=== PATIENT | female | born 1990 | race Caucasian/White ===

== ENCOUNTER → 2016-06-20 | Outpatient (CLI) | payer OTHER ==
--- NOTE | 2016-06-20 15:07 | REP ---
Pelvic sonography: History: Pelvic cramping, IUD placement. Findings: Transabdominal and endovaginal scanning are performed. Uterine dimensions are normal at 7.9 x 3.9 x 4.3 cm. There is a linear echogenic structure in the endometrium consistent with a normally positioned IUD. No focal uterine mass is seen. No free fluid is noted. The right ovary measures 3.6 x 2.4 x 2.9 cm. Left ovary measures 2.0 x 1.6 x 3.4 cm. Resistive indices are normal by Doppler bilaterally measured at 0.39 and 0.9 on the right and left respectively. Impression: IUD in what appears to be normal position. Unremarkable pelvic sonography. Signed by Colby Thomas MD 06/20/2016 03:11 P
== END ==
LOC: M RAD 12:37
PROVIDERS: ATTEND Advanced Practice Midwife
DX: R10.30 Lower abdominal pain, unspecified (principal); Z97.5 Presence of (intrauterine) contraceptive device

== ENCOUNTER → 2016-10-04 | Outpatient (REF) | payer OTHER | LOC: M SFHCLERA 18:03 | PROVIDERS: ATTEND Nurse Practitioner Family | DX: J02.9 Acute pharyngitis, unspecified (principal) ==